=== PATIENT | female | born 1990 | race Caucasian/White ===

== ENCOUNTER 2019-01-25 14:34 | Emergency (ER) | payer MEDICAID ==
[2019-01-25] MEDS: IBUPROFEN 600 MG TAB PO (15:13)
[2019-01-25] MEDS: LORAZEPAM 0.5 MG TAB PO (15:13)
[2019-01-25 15:16] LABS: URINE BLOOD (Dip) POC 1+ (NEGATIVE); URINE GLUCOSE (Dip) POC Negative (NEGATIVE); URINE KETONES (Dip) POC Negative (NEGATIVE); URINE LEUKOCYTE EST (Dip) POC Negative (NEGATIVE); URINE NITRITE (Dip) POC Negative (NEGATIVE); URINE TOTAL PROTEIN POC Negative (NEGATIVE)
== END 2019-01-25 16:08 | disposition home or self-care (01) ==
LOC: FTE 14:34
DX: M79.602 Pain in left arm (principal)
CPT/HCPCS: 71045; 81003; 81025; 93005; 99284-25